=== PATIENT | male | born 1980 | race Caucasian/White ===

== ENCOUNTER 2019-03-23 15:57 | Outpatient (CLI) | payer MEDICAID | END 2019-03-23 15:58 | disposition critical access hospital (66) | LOC: EMS 15:57 | PROVIDERS: ATTEND Surgery | DX: R07.81 Pleurodynia (principal); R68.84 Jaw pain | CPT/HCPCS: A0425; A0429; A0999 ==

== ENCOUNTER 2019-03-23 16:30 | Emergency (ER) | payer MEDICAID ==
[2019-03-23] MEDS ORDERED: HYDROcod/ACETAM 5/325 MG TABLET PO STA (16:43)
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
[2019-03-23 17:57] VITALS: BP 128/82
== END 2019-03-23 17:56 | disposition home or self-care (01) ==
LOC: ED 16:30
DX: S20.211A Contusion of right front wall of thorax, initial encounter (principal); S00.83XA Contusion of other part of head, initial encounter; S40.021A Contusion of right upper arm, initial encounter; S20.229A Contusion of unspecified back wall of thorax, initial encounter; S40.812A Abrasion of left upper arm, initial encounter; S40.811A Abrasion of right upper arm, initial encounter; Y04.2XXA Assault by strike against or bumped into by another person, initial encounter; X99.0XXA Assault by sharp glass, initial encounter
CPT/HCPCS: 70486; 71101; 99283; 99284; A9270